=== PATIENT | female | born 1945 | race Caucasian/White ===

== ENCOUNTER 2020-03-05 07:58 | Day surgery (SDC) | payer OTHER, MEDICARE, SELFPAY ==
[~2020-03-05] VITALS: Ht 162.6 cm; Wt 61.2 kg
[2020-03-05] MEDS ORDERED: MIDAZOLAM HCL 5 MG/5 ML VIAL IVP ONE (08:19)
[2020-03-05] MEDS ORDERED: BUPIVACAINE /EPINEPHRINE/PF 0.25% 30 ML VIAL INJ ONE (08:19)
[2020-03-05] MEDS ORDERED: LIDOCAINE 2%, 20 ML MDV IM ONE (08:19)
[2020-03-05] MEDS ORDERED: SEVOFLURANE 15 MIN GAS INH ONE (08:19)
[2020-03-05] MEDS ORDERED: fentaNYL CITRATE/PF 100 MCG/2 ML AMP IVP ONE (08:19)
[2020-03-05] MEDS ORDERED: DEXAMETHASONE SOD PHOSPHATE 4 MG/ML VIAL IVP ONE (08:19)
[2020-03-05] MEDS ORDERED: BUPIVACAINE LIPOSOME/PF 266 MG/20 ML VIAL INFIL ONE ×2 (08:19→09:16)
[2020-03-05] MEDS ORDERED: NS IRRIG SOLN 1000 ML IR ONE (08:19)
[2020-03-05] MEDS ORDERED: ONDANSETRON HCL 4 MG/2 ML VIAL IVP ONE (08:19)
[2020-03-05] MEDS ORDERED: CEFAZOLIN SOD 1 GM in D5W 50 ML IV ONE (08:30)
[2020-03-05] MEDS ORDERED: CEFAZOLIN 1 GM IVPB PREMIX 0 ML IV ONE (08:47)
[2020-03-05] MEDS ORDERED: D5/0.45 NS 1,000 ML IV SCH (09:14)
[2020-03-05] MEDS ORDERED: LR 1,000 ML IV SCH (09:15)
[2020-03-05] MEDS ORDERED: MEPERIDINE HCL/PF 25 MG/ML DISP.SYRIN IVP PRN (09:15)
[2020-03-05] MEDS ORDERED: ONDANSETRON HCL 4 MG/2 ML VIAL IVP PRN (09:15)
[2020-03-05] MEDS ORDERED: MIDAZOLAM HCL 2 MG/2 ML VIAL (VERSED) IVP PRN (09:15)
[2020-03-05] MEDS ORDERED: HYDROcodone/ACETAMIN 5-325 MG TAB (NORCO/ VICODIN) PO PRN ×2 (09:15)
[2020-03-05] MEDS ORDERED: METOCLOPRAMIDE HCL 10 MG/2 ML VIAL IVP PRN (09:15)
[2020-03-05] MEDS ORDERED: HYDROmorphone 1 MG INJ. 1 MG/ML AMPUL IVP PRN ×3 (09:15)
[2020-03-05 10:10] VITALS: BP_SYST 129
[2020-03-05] MEDS ORDERED: MEPERIDINE HCL/PF 25 MG/ML DISP.SYRIN ONE (10:10)
== END 2020-03-05 12:35 | disposition home or self-care (01) ==
LOC: SDS 07:58 → SMU 08:01 → SDS 12:35
PROVIDERS: ATTEND Colon & Rectal Surgery
DX: K60.2 Anal fissure, unspecified (principal); I10 Essential (primary) hypertension; E03.9 Hypothyroidism, unspecified; F41.9 Anxiety disorder, unspecified; E78.00 Pure hypercholesterolemia, unspecified; M19.90 Unspecified osteoarthritis, unspecified site; Z88.8 Allergy status to other drugs, medicaments and biological substances; Z79.899 Other long term (current) drug therapy
CPT/HCPCS: 36415; 46200; 87426; 88304; C9290; J0690; J1100; J2001; J2175; J2250; J2405; J3010; J3490; J7060